=== PATIENT | male | born 1990 | race Caucasian/White ===

== ENCOUNTER 2023-03-03 22:33 | Outpatient (REF) | payer MEDICARE, MEDICAID, SELFPAY ==
[2023-03-03 16:07] LABS: Anion Gap 5.1 mmol/L (3-11); BUN 17 mg/dL (7-18); CO2 29.9 mmol/L (21.0-32.0); CREATININE 0.4 mg/dL (0.70-1.30); Calcium 8.3 mg/dL (8.5-10.1); Chloride 102 mmol/L (98-107); Estimated GFR 148.67 (mL/min/1.73m2); Glucose 93 mg/dL (74-106); Potassium 4.1 mmol/L (3.5-5.1); Sodium 137 mmol/L (136-145)
[2023-03-03 16:46] LABS: Bilirubin Negative (Negative); Blood Negative (Negative); Clarity Clear (Clear); Glucose Negative (Negative); Ketones Negative (Negative); Leukocyte Esterase Negative (Negative); Nitrite Negative (Negative); Urobilinogen 0.2 mg/dL (Up to 0.2); pH 7.5 (5-8)
== END 2023-03-03 22:34 | disposition home or self-care (01) ==
LOC: LBN 22:33
PROVIDERS: Visit Provider Family Medicine
DX: G82.50 Quadriplegia, unspecified (principal); I26.02 Saddle embolus of pulmonary artery with acute cor pulmonale; J69.0 Pneumonitis due to inhalation of food and vomit
CPT/HCPCS: 80048; 81003

== ENCOUNTER 2024-01-28 15:20 | Outpatient (REF) | payer MEDICARE, MEDICAID, SELFPAY ==
[2024-01-28 21:17] LABS: HCT 48.1 % (40.0-50.0); HGB 15.6 g/dL (13.5-17.5); MCH 30.1 pg (27.0-33.0); MCHC 32.4 % (32.0-36.0); MCV 93 fL (80-95); MPV 11.2 fL (8.0-11.0); Platelet Count 175 10^3/uL (130-400); RBC 5.18 10^6/uL (4.36-5.78); RDW 12.4 % (11.8-14.1); RDW-SD 42.8 fL; WBC 6.76 10^3/uL (4.4-10.8)
[2024-01-28 21:54] LABS: Vitamin D 25 Total 31.7 ng/mL (30-100)
[2024-01-28 22:06] LABS: ALT 39 U/L (16-63); AST 25 U/L (15-37); Albumin 3.5 g/dL (3.4-5.0); Alkaline Phosphatase 63 U/L (46-116); Anion Gap 6.2 mmol/L (3-11); BUN 15 mg/dL (7-18); Bilirubin, Total 0.3 mg/dL (0.2-1.0); CO2 30.8 mmol/L (21.0-32.0); CREATININE 0.5 mg/dL (0.70-1.30); Calcium 8.6 mg/dL (8.5-10.1); Chloride 101 mmol/L (98-107); Estimated GFR 138.12 (mL/min/1.73m2); Ferritin 22 ng/mL (26-388); Folate > 20.0 ng/mL (8.6-20.0); Glucose 92 mg/dL (74-106); Potassium 4.3 mmol/L (3.5-5.1); Sodium 138 mmol/L (136-145); Total Protein 7.4 g/dL (6.4-8.2); Vitamin B12 > 2000 pg/mL (193-986)
[2024-01-28 22:13] LABS: Total Iron Binding Capacity 350 ug/dL (250-450)
== END 2024-01-28 15:21 | disposition home or self-care (01) ==
LOC: NCHCN 15:20
PROVIDERS: PCP Family Medicine; Visit Provider Family Medicine
DX: D50.9 Iron deficiency anemia, unspecified (principal); E53.8 Deficiency of other specified B group vitamins; D53.1 Other megaloblastic anemias, not elsewhere classified; E55.9 Vitamin D deficiency, unspecified
CPT/HCPCS: 80053; 82306; 85027; 82607; 82728; 82746; 83550

== ENCOUNTER 2025-04-24 18:13 | Outpatient (REF) | payer MEDICARE, BC, MEDICAID, SELFPAY ==
[2025-04-24 21:33] LABS: HCT 36.5 % (40.0-50.0); HGB 11.7 g/dL (13.5-17.5); MCH 30.7 pg (27.0-33.0); MCHC 32.1 % (32.0-36.0); MCV 96 fL (80-95); MPV 11.3 fL (8.0-11.0); Platelet Count 251 10^3/uL (130-400); RBC 3.81 10^6/uL (4.36-5.78); RDW 13.1 % (11.8-14.1); RDW-SD 44.2 fL; WBC 6.93 10^3/uL (4.4-10.8)
[2025-04-24 21:51] LABS: Iron 32 ug/dL (65-175); Total Iron Binding Capacity 290 ug/dL (250-450); Transferrin Sat 11 % (20-55)
[2025-04-24 22:10] LABS: Ferritin 81 ng/mL (26-388); Magnesium 2.1 mg/dL (1.8-2.4); Vitamin D 25 Total 35 ng/mL (30-100)
== END 2025-04-24 18:14 | disposition home or self-care (01) ==
LOC: NCHCN 18:13
PROVIDERS: PCP Family Medicine; Visit Provider Family Medicine
DX: E56.9 Vitamin deficiency, unspecified (principal); E83.42 Hypomagnesemia; D64.9 Anemia, unspecified
CPT/HCPCS: 82306; 85027; 82728; 83540; 83550; 83735